=== PATIENT | male | born 1965 | race Caucasian/White ===

== ENCOUNTER 2020-08-14 13:04 | Emergency (ER) | payer OTHER ==
[2020-08-14 14:15] LABS: BASOPHIL 0.6 % (0-2); EOSINOPHIL 2.1 % (0-5); HCT 44.6 % (42.0-52.0); HGB 14.4 g/dl (13.2-18.0); LYMPHOCYTE 27.3 % (15-48); MCHC 32.3 g/dL (32.0-36.0); MCV 99.1 fL (78.0-100.0); MONOCYTE 9.8 % (0-12); NEUTROPHIL 59.4 % (41-80); NRBC 0; PLT 292 K/uL (150-400); RDW 13.2 % (11.5-14.0); WBC 6.3 K/uL (4.0-10.5)
[2020-08-14 14:23] LABS: INR 1.01 (0.9-1.2); PROTHROMBIN TIME 12.6 SECONDS (11.4-13.6); PTT 27.6 SECONDS (22.2-34.7)
[2020-08-14 14:37] LABS: ALBUMIN 3.6 g/dL (3.4-5.0); BILIRUBIN - TOTAL 0.6 mg/dL (0.2-1.0); BUN/CREAT RATIO (CALC) 16.7 RATIO; CREATININE 0.96 mg/dL (0.67-1.17); TOTAL PROTEIN 7.6 g/dL (6.4-8.2)
== END 2020-08-14 21:45 | disposition other institution (70) ==
LOC: FER 13:04
PROVIDERS: Emergency Medicine
DX: I21.4 Non-ST elevation (NSTEMI) myocardial infarction (principal); R55 Syncope and collapse
CPT/HCPCS: 36415; 70450; 71250; 80053; 84484; 85025; 85610; 85730; 93005; J1644

== ENCOUNTER 2020-11-09 10:10 | Emergency (ER) | payer OTHER | END 2020-11-09 11:55 | disposition home or self-care (01) | LOC: FER 10:10 | DX: R07.89 Other chest pain (principal); R06.02 Shortness of breath | CPT/HCPCS: 71101 ==

== ENCOUNTER → 2020-12-21 | Day surgery (SDC) | payer OTHER ==
[~2020-12-21] VITALS: Ht 177.8 cm; Wt 74.8 kg
[2020-12-21 09:12] LABS: BILIRUBIN - TOTAL 0.8 mg/dL (0.2-1.0); CREATININE 0.83 mg/dL (0.67-1.17); POTASSIUM 4.5 mmol/L (3.5-5.1)
== END | disposition home or self-care (01) ==
LOC: FAS 07:49
PROVIDERS: Surgery
DX: K29.50 Unspecified chronic gastritis without bleeding (principal); K21.00 Gastro-esophageal reflux disease with esophagitis, without bleeding; G89.29 Other chronic pain; K44.9 Diaphragmatic hernia without obstruction or gangrene; R10.12 Left upper quadrant pain; R94.8 Abnormal results of function studies of other organs and systems; K57.30 Diverticulosis of large intestine without perforation or abscess without bleeding; K62.89 Other specified diseases of anus and rectum
CPT/HCPCS: 36415; 80053; 82150; 83690; J7120

== ENCOUNTER 2022-01-26 12:00 | Emergency (ER) | payer OTHER ==
[2022-01-26 12:57] LABS: BASOPHIL 0.7 % (0-2); EOSINOPHIL 2.1 % (0-5); HCT 42.8 % (42.0-52.0); LYMPHOCYTE 41.3 % (15-48); MCH 32.6 pg (25.0-31.0); MCHC 32.7 g/dL (32.0-36.0); MCV 99.8 fL (78.0-100.0); MONOCYTE 11.5 % (0-12); MPV 9.5 fL (6.0-9.5); NRBC 0; PLT 244 K/uL (150-400); RBC 4.29 M/uL (4.70-6.00); RDW 13.5 % (11.5-14.0); WBC 9.2 K/uL (4.0-10.5)
[2022-01-26 13:13] LABS: ALBUMIN 3.8 g/dL (3.4-5.0); BILIRUBIN - TOTAL 0.6 mg/dL (0.2-1.0); BUN/CREAT RATIO (CALC) 13.2 RATIO; CREATININE 0.91 mg/dL (0.67-1.17); GLOBULIN (CALCULATION) 4.5 g/dL; POTASSIUM 3.6 mmol/L (3.5-5.1); TOTAL PROTEIN 8.3 g/dL (6.4-8.2)
[2022-01-26] MEDS ORDERED: PEPCID AC20 MG PO (14:29)
[2022-01-26] MEDS ORDERED: PREDNISONE 20MG20 MG PO (14:29)
== END 2022-01-26 14:50 | disposition home or self-care (01) ==
LOC: FER 12:00
PROVIDERS: Emergency Medicine
DX: K13.0 Diseases of lips (principal); T36.8X5A Adverse effect of other systemic antibiotics, initial encounter; T37.3X5A Adverse effect of other antiprotozoal drugs, initial encounter
CPT/HCPCS: 36415; 80053; 85025; 96372; J0171; J1200; J2930